=== PATIENT | female | born 1985 | race Caucasian/White ===

== ENCOUNTER → 2017-06-28 | Day surgery (SDC) | payer OTHER ==
[~2017-06-28] VITALS: Ht 162.6 cm; Wt 65.0 kg
[~2017-06-28] MED LIST: BUPIVACAINE HCL PF 0.25% 30 ML VIAL ONE; BUSP15TA PO; CHLORHEXIDINE GLUCONATE 2 % 1 PACK (2 CLOTHS) TOPICAL PRN; FAMOTIDINE 20 MG/2 ML VIAL ONE; HYDROmorphone HCL PF 0.5 MG/0.5 ML SYRINGE ONE; KETOROLAC TROMETHAMINE 30 MG/ML (IVP) VIAL ONE; LACTATED RINGER'S 1000 ML IV PRN; METOPROLOL TARTRATE 25 MG TAB PO PRN; MIDAZOLAM HCL 2 MG/2 ML VIAL ONE; MORPHINE SULFATE 2 MG/ML INJ ONE; NAPR5TAB5 PO; NUVAMIS; POVIDONE IODINE 5% (ANTISEPSIS KIT) 4 APPLICATIONS EACH NARE PRN; PROPOFOL 200 MG/20 ML AMP IV ONE; PROV10TA PO; SODIUM CHLORID 0.9% 500 ML IV PRN; TOPR25TA PO; VENL75TA PO; XANA1TAB2 PO; ZANA2CAP PO; ZOLO100T PO; ceFAZolin 1,000 MG/NS 100 ML IV SCH
[2017-06-28 11:10] VITALS: BP 126/87; PULSE 108; RESP 15; TEMP 98.4; O2SAT 96
--- NOTE | 2017-07-06 10:55 | PD.OP ---
Operative Report Date of Surgery: Jun 28, 2017 Preoperative Diagnosis: (1) Encounter for female sterilization procedure Postoperative Diagnosis: (1) Encounter for female sterilization procedure Procedure: Laparoscopic fallopian tube occlusion by cautery. Anesthesia: GET Surgeon: Roxane Hernandez Special Education Teaching Assistant(s): Carmen Cao Surgeon: n/a Operation and Findings: Indications: 32 y/o multiparous patient requests permanent and irreversible sterilization. She is aware of all other options. Findings:Normal pelvis Procedure: The patient was placed supine for induction of general anesthesia. She was then prepped and draped in low stirrups and an open-sided speculum was placed in the vagina. The cervx was grasped with a tenaculum and a Hulka uterine manipulator was placed. After re-gloving attention was turned to the pelvis where a 10mm incision was placed in the umbilicus. A Veress needle was inserted and 2 liters of CO2 were instilled without difficulty. A trocar was the introduced. Using transillumination and direct visualization, a second 5 mm port was placed in the LLQ. The left fallopian tube was grasped in the midportion with the ring applicator, but the device misfired. On second attempt the tube tore slightly and required cautery. Therefore a Kleppinger forceps was requested and the tube was cauterized in three adjacent bites applying current until conductivity dropped to 0. The same procedure was carried out on the other side. The procedure being complete, the pneumoperitoneum was released. The umbilical incision was closed with 0 vicryl on the facia. 4-0 monocryl was used subcuticularly. Dermabond was applied as dressing. The uterine manipulator was removed and the patient was transferred to the PACU awake and breathing on her own. Sponge needle and instrument counts were correct. Roxane Hernandez MD Jul 06, 2017 10:55
== END | disposition home or self-care (01) ==
LOC: PHSDC 06:11
PROVIDERS: ATTEND Obstetrics & Gynecology
DX: Z30.2 Encounter for sterilization (principal); N94.10 Unspecified dyspareunia; G43.909 Migraine, unspecified, not intractable, without status migrainosus; G40.909 Epilepsy, unspecified, not intractable, without status epilepticus
CPT/HCPCS: 00851; 58670; J0690; J1170; J1885; J2250; J2270; J3010; J7120